=== PATIENT | female | born 1975 | race Caucasian/White ===

== ENCOUNTER → 2017-09-04 | Outpatient (CLI) | payer OTHER ==
[~2017-09-04] MED LIST: BUPR150T7 PO; FLUO10CA24 PO; LORA-741 PO; OPTIRAY 320 IV PRN
--- NOTE | 2017-09-04 18:07 | DIAGNOSTIC IMAGING REPORT ---
HEAD CTA HISTORY: VISUAL DISTURBANCES TECHNIQUE: Multiaxial CT images of the head were performed both before and after the intravenous administration of contrast to evaluate the major cerebral vessels. Maximum intensity projection images were also obtained. A dose lowering technique was utilized adhering to the principles of ALARA. COMPARISON: None. FINDINGS: There is no mass, hematoma, midline shift, or acute infarct. Visualized intracranial internal carotid arteries, distal vertebral arteries, and basilar artery are widely patent. There is no significant stenosis, occlusion, or aneurysm seen within the bilateral ACAs, MCAs, or cosmetology educator. Hypoplastic left P1 segment considered to be a normal variant. The left [employer] is fed primarily through the left posterior communicating artery. IMPRESSION: 1. No acute intracranial abnormality. 2. No significant stenosis, occlusion, or aneurysm within the [place]. Electronically signed by: Moustapha Hernandez M.D. 09/04/2017 6:05 PM Dictated Date/Time: 09/04/2017 5:52 PM
== END | disposition home or self-care (01) ==
LOC: C.CTS 15:31
PROVIDERS: ATTEND Psychiatry & Neurology Neurology
DX: H53.9 Unspecified visual disturbance (principal)